=== PATIENT | female | born 1940 | race African-American/Black ===

== ENCOUNTER 2018-03-27 09:11 | Day surgery (SDC) | payer MEDICARE, MEDICAID ==
[~2018-03-27] VITALS: Ht 162.6 cm; Wt 110.2 kg
[~2018-03-27 09:11] MED LIST: AMMONIUM LACTATE; BACL-141; FERR325T6 PO; GABA300C PO; HYDR-4009 PO; LACTATED RINGERS 1,000 ML IV SCH; METO10TA3 PO; METOCLOPRAMIDE; MOM PO; OMEP20CA4 PO; POTA20TA82 PO; RIVA10TA; RIVA20TA PO; SIMV40TA2; SPIR25TA6 PO; TORS20TA4 PO
[2018-03-27] MEDS ORDERED: SIMETHICONE 40 MG/0.6 ML 30ML ONE (09:32)
[2018-03-27] MEDS ORDERED: PROPOFOL 200MG/20ML VIAL IV ONE (09:34)
== END 2018-03-27 13:50 | disposition home or self-care (01) ==
LOC: OR 09:11
PROVIDERS: ATTEND Internal Medicine Gastroenterology
DX: D12.2 Benign neoplasm of ascending colon (principal); D12.3 Benign neoplasm of transverse colon; K29.60 Other gastritis without bleeding; K64.8 Other hemorrhoids; K44.9 Diaphragmatic hernia without obstruction or gangrene; E78.00 Pure hypercholesterolemia, unspecified; K21.9 Gastro-esophageal reflux disease without esophagitis; I11.0 Hypertensive heart disease with heart failure; I50.9 Heart failure, unspecified; E66.01 Morbid (severe) obesity due to excess calories; Z90.710 Acquired absence of both cervix and uterus; Z98.890 Other specified postprocedural states; Z79.899 Other long term (current) drug therapy
CPT/HCPCS: 88305; 88312; 88313; J2704; J7120